=== PATIENT | male | born 1945 | race Caucasian/White ===

== ENCOUNTER 2020-11-26 22:00 | Emergency (ER) | payer OTHER ==
[2020-11-26 23:23] LABS: HEMOGLOBIN 13.8 gm/dl (14.0-17.5); RED BLOOD COUNT 4.26 M/UL (4.20-5.50); WHITE BLOOD COUNT 6.7 K/UL (4.5-11.0)
[2020-11-26 23:43] LABS: BUN/CREATININE RATIO 9 (0-10)
== END 2020-11-27 01:29 | disposition home or self-care (01) ==
LOC: ER1 22:00
PROVIDERS: Family Medicine
DX: Z20.822 Contact with and (suspected) exposure to COVID-19 (principal); H91.3 Deaf nonspeaking, not elsewhere classified; I10 Essential (primary) hypertension; Z88.6 Allergy status to analgesic agent; Z91.040 Latex allergy status
CPT/HCPCS: 80053; 81001; 83690; 85025; 99283; U0002

== ENCOUNTER 2021-12-01 11:33 | Emergency (ER) | payer OTHER ==
[2021-12-01] MEDS ORDERED: VISTARIL 50 MG50 MG PO (13:10)
== END 2021-12-01 13:10 | disposition home or self-care (01) ==
LOC: ER1 11:33
DX: F41.0 Panic disorder [episodic paroxysmal anxiety] (principal); Z91.14 Patient's other noncompliance with medication regimen; E11.9 Type 2 diabetes mellitus without complications; I10 Essential (primary) hypertension; Z88.6 Allergy status to analgesic agent
CPT/HCPCS: 82962; 99283